=== PATIENT | male | born 1995 | race Hispanic/Latino ===

== ENCOUNTER 2019-12-17 23:26 | Inpatient (IN) | payer OTHER, SELFPAY ==
[~2019-12-17] VITALS: Ht 180.3 cm; Wt 68.6 kg
[2019-12-17] MEDS ORDERED: ONDANSETRON HCL 4 MG/2 ML VIAL ONE (23:42)
[2019-12-17 23:49] LABS: BASOPHILS % (AUTO) 0.4 % (0.0-5.0); HEMATOCRIT 50.1 % (42-54); LYMPHOCYTES % (AUTO) 8.1 % (21.0-51.0); MEAN CORPUSCULAR HEMOGLOBIN 33.2 pg (27.0-33.0); MEAN CORPUSCULAR HGB CONC 36.9 g/dL (32.0-36.0); MEAN CORPUSCULAR VOLUME 89.9 fL (79-99); MONOCYTES % (AUTO) 5.6 % (3.0-13.0); NEUTROPHILS % (AUTO) 84.4 % (40.0-77.0); PLATELET COUNT (AUTO) 240 K/uL (130-400); RED BLOOD CELL COUNT(AUTO) 5.57 MIL/uL (4.50-6.20); RED CELL DISTRIBUTION WIDTH 11.5 % (11.0-15.5)
[2019-12-18] MEDS ORDERED: METOCLOPRAMIDE 10 MG/2 ML VIAL ONE (00:02)
[2019-12-18 00:28] LABS: CREATININE 3.6 mg/dL (0.5-1.5); POTASSIUM 3.5 mmol/L (3.5-5.1)
[2019-12-18 00:32] LABS: ALBUMIN 5.6 g/dL (3.5-5.0); BILIRUBIN,TOTAL 0.7 mg/dL (0.2-1.0); TOTAL PROTEIN, SERUM 9.9 g/dL (6.0-8.3)
[2019-12-18] MEDS ORDERED: ONDANSETRON HCL 4 MG/2 ML VIAL ONE ×2 (00:58→02:11)
[2019-12-18 02:08] LABS: APPEARANCE,URINE Cloudy (CLEAR); BILIRUBIN,URINE Negative (NEGATIVE); COLOR,URINE Yellow (YELLOW); GLUCOSE, URINE (UA) Negative (NEGATIVE); KETONES,URINE 15 mg/dL (NEGATIVE); LEUKOCYTE ESTERASE ,URINE Negative (NEGATIVE); NITRATE,URINE Negative (NEGATIVE); OCCULT BLOOD,URINE Trace (NEGATIVE); PROTEIN,URINE POS 1+ mg/dL (NEGATIVE)
[2019-12-18] MEDS ORDERED: DiphenhydrAMINE HCL 50 MG/ML VIAL ONE (02:11)
[2019-12-18] MEDS ORDERED: SODIUM CHLORIDE 0.9% 1000ML 1,000 ML IV SCH (02:15)
[2019-12-18] MEDS ORDERED: ACETAMINOPHEN 325 MG TAB PO PRN ×2 (02:15)
[2019-12-18] MEDS ORDERED: ONDANSETRON HCL 4 MG/2 ML VIAL IV PRN (02:15)
[2019-12-18] MEDS ORDERED: LIDOCAINE HCL 2% VISCOUS 30 ML, MAG HYDROX/AL HYDROX/SIMETH 30 ML, BELLADONNA-PHENOBARB... PO PRN ×6 (02:15→03:15)
[2019-12-18 02:17] LABS: AMPHET/METH SCREEN,URINE NEGATIVE (NEGATIVE); BARBITURATE SCREEN, URINE NEGATIVE (NEGATIVE); BENZODIAZEPINES SCREEN,URINE NEGATIVE (NEGATIVE); CANNABINOID SCREEN,URINE POSITIVE (NEGATIVE); COCAINE SCREEN,URINE POSITIVE (NEGATIVE); OPIATE SCREEN,URINE NEGATIVE (NEGATIVE); PHENCYCLIDINE SCREEN,URINE NEGATIVE (NEGATIVE)
[2019-12-18] MEDS ORDERED: SODIUM CHLORIDE 0.9% 50 ML IV ONE (02:18)
[2019-12-18 02:25] LABS: BACTERIA,URINE None Seen /HPF (None Seen); CALCIUM OXALATE CRYSTALS,UR Moderate /LPF (None Seen); MUCUS,URINE Many LPF (None Seen); SQUAMOUS EPITHELIAL CELL,UR Moderate /HPF (0-2); URIC ACID CRYSTALS,URINE Few /LPF (None Seen); WBC,URINE 0-1 /HPF (0-1)
[2019-12-18] MEDS: SODIUM CHLORIDE 0.9% 1000ML 1,000 ML IV SCH ×4 (04:50→23:35)
[2019-12-18 05:00] VITALS: BP 120/60
[2019-12-18] MEDS: INSULIN HUMULIN R 100 UNIT/ML 3ML SQ SCH ×4 (06:00→23:41)
[2019-12-18 08:39] VITALS: BP 132/74
--- NOTE | 2019-12-18 08:43 | NUR ---
called dr duncan's office and spoke to james and informed of new consult
[2019-12-18 08:51] LABS: HEMATOCRIT 41.9 % (42-54); MEAN CORPUSCULAR HEMOGLOBIN 32.5 pg (27.0-33.0); MEAN CORPUSCULAR HGB CONC 35.3 g/dL (32.0-36.0); MEAN CORPUSCULAR VOLUME 91.9 fL (79-99); RED BLOOD CELL COUNT(AUTO) 4.56 MIL/uL (4.50-6.20); RED CELL DISTRIBUTION WIDTH 11.7 % (11.0-15.5); WHITE BLOOD COUNT (AUTO) 16.5 K/uL (4.8-10.8)
[2019-12-18] MEDS ORDERED: FAMOTIDINE/PF 20 MG/2 ML VIAL IV SCH (09:00)
[2019-12-18 09:16] LABS: HEMOGLOBIN A1C 5.5 % (4.0-6.0)
[2019-12-18 09:18] LABS: ALBUMIN 3.9 g/dL (3.5-5.0); BILIRUBIN,TOTAL 0.6 mg/dL (0.2-1.0); CREATININE 1.6 mg/dL (0.5-1.5); POTASSIUM 3.7 mmol/L (3.5-5.1); TOTAL PROTEIN, SERUM 7.3 g/dL (6.0-8.3)
[2019-12-18 11:19] VITALS: BP 120/67
[2019-12-18] MEDS: PANTOPRAZOLE 40 MG/VIAL IVP SCH ×2 (11:26→23:35)
[2019-12-18 16:54] VITALS: BP 115/66
--- NOTE | 2019-12-18 17:57 | NUR ---
IA- AT BEDSIDE WITH PATIENT STATES LIVES W/ FAMILY, DRIVES, INDP, NO DME, RECENTLY RE-EMPLOYED, WAS OUT N THE SUN YESTERDAY; DCP HOME, GOOD RX AND 4 $ HEB MED PROGRAM DISCUSSED. CM TO FOLLOW Addendum: 12/18/19 at 1801 by VASYL MARS RN CM Amended: Links added.
[2019-12-18 18:43] LABS: CREATININE,URINE RANDOM 390 mg/dL (30-135); SODIUM,URINE RANDOM 49 mmol/l (40-220)
[2019-12-18 20:16] VITALS: BP 111/57
[2019-12-19 00:16] VITALS: BP 108/54
[2019-12-19 04:16] VITALS: BP 99/58
[2019-12-19 06:09] LABS: HEMATOCRIT 37.7 % (42-54); MEAN CORPUSCULAR HEMOGLOBIN 32.9 pg (27.0-33.0); PLATELET COUNT (AUTO) 178 K/uL (130-400); RED BLOOD CELL COUNT(AUTO) 4.01 MIL/uL (4.50-6.20); RED CELL DISTRIBUTION WIDTH 11.8 % (11.0-15.5); WHITE BLOOD COUNT (AUTO) 12.6 K/uL (4.8-10.8)
[2019-12-19] MEDS: INSULIN HUMULIN R 100 UNIT/ML 3ML SQ SCH ×2 (06:17→11:30)
[2019-12-19] MEDS: SODIUM CHLORIDE 0.9% 1000ML 1,000 ML IV SCH ×2 (06:19→09:28)
[2019-12-19 06:20] LABS: BAND NEUTROPHILS % (MANUAL) 3 % (0-2); LYMPHOCYTES % (MANUAL) 52 % (22-44); MAN.DIFF COMMENT-IMPRESSION MANUAL DIFFERENTIAL; MONOCYTES % (MANUAL) 4 % (2-9); PLATELET MORPHOLOGY COMMENT ADEQUATE; REACTIVE LYMPHOCYTES 3 % (0-0); SEGMENTED NEUTROPHILS % 38 % (40-70)
[2019-12-19 06:30] LABS: CREATININE 0.9 mg/dL (0.5-1.5); POTASSIUM 3.8 mmol/L (3.5-5.1)
[2019-12-19 08:20] VITALS: BP 94/49
[2019-12-19] MEDS ORDERED: FAMOTIDINE 20MG TAB 20 MG TAB PO SCH (09:00)
[2019-12-19] MEDS ORDERED: THIAMINE HCL 100 MG/ML 2ML VIAL IVP SCH (09:00)
[2019-12-19] MEDS ORDERED: THIAMINE HCL 100 MG TABLET ONE (09:04)
[2019-12-19 11:31] VITALS: BP 123/72
--- NOTE | 2019-12-19 11:58 | NUR ---
pt waiting to be discharged home today; currently waiting for dr jun Arnett to round and give approval for d/c; pt ordered by hospitalist to f/u w/ his PCP but pt is listed as not having a pcp so i have provided him with a list of local md's and informed him to return to ED if he has a return of symptoms or any other problems; pt pulled out his own iv already this am when he wanted to shower without telling nurse.
--- NOTE | 2019-12-19 14:24 | NUR ---
dr duncan told pt his kidneys were fine and he is ok to be d/c home; i have printed out pt's discharge papers and given them to him, his only question was if his kidneys were ok and i informed him that todays lab work showed his kidneys were back to normal; he has called a ride to come and pick him up.
== END 2019-12-19 15:00 | disposition home or self-care (01) | DRG 683 ==
LOC: EDH 23:26 → EDHIP 23:27 → 3AH 12-18 02:58
PROVIDERS: ADMIT Internal Medicine; ATTEND Internal Medicine
DX: N17.9 Acute kidney failure, unspecified (principal); E87.1 Hypo-osmolality and hyponatremia; E86.0 Dehydration; F12.90 Cannabis use, unspecified, uncomplicated; F17.210 Nicotine dependence, cigarettes, uncomplicated; D72.829 Elevated white blood cell count, unspecified; Z20.828 Contact with and (suspected) exposure to other viral communicable diseases; R73.9 Hyperglycemia, unspecified; F14.90 Cocaine use, unspecified, uncomplicated
CPT/HCPCS: 36415; 71045; 74176; 80048; 80053; 80305; 81001; 82550; 82570; 82948; 83036; 83605; 83690; 84300; 85025; 85027; 87040; 87088; 87426; C9113; G0378; J1200; J2405; J2765; J3490; J7030; U0003